=== PATIENT | female | born 1980 | race Caucasian/White ===

== ENCOUNTER 2019-04-20 12:15 | Emergency (ER) | payer SELFPAY ==
[~2019-04-20] VITALS: Ht 162.6 cm; Wt 90.7 kg
[~2019-04-20 12:15] MED LIST: ALBU90OI INH; AZIT250 PO; CLON2; CRUTCH4 USE; CYCL10 PO; FLUO20; HYDACE5; HYDACE5 PO; HYDPAM25 PO; IBUP800; IBUP800 PO; NAPR500 PO; NAPR550 PO; OXYACE5T PO; PRED20 PO; RXHYDACE PO; RXIBUP800 PO
== END 2019-04-20 14:21 | disposition left against medical advice (07) ==
LOC: ER 12:15
DX: Z53.21 Procedure and treatment not carried out due to patient leaving prior to being seen by health care provider (principal)

== ENCOUNTER → 2019-12-18 | Outpatient (CLI) | payer OTHER | END | disposition home or self-care (01) | LOC: LAB EV 11:00 → LAB SHORT 11:00 | DX: J20.9 Acute bronchitis, unspecified (principal); Z20.828 Contact with and (suspected) exposure to other viral communicable diseases | CPT/HCPCS: U0003 ==

== ENCOUNTER 2020-04-05 12:54 | Emergency (ER) | payer OTHER ==
[~2020-04-05] VITALS: Ht 162.6 cm; Wt 99.8 kg
[2020-04-05] MEDS ORDERED: CYCL10 PO (16:30)
[2020-04-05] MEDS ORDERED: LIDO700A20 TOP (16:30)
== END 2020-04-05 16:40 | disposition home or self-care (01) ==
LOC: ER 12:54
DX: M54.41 Lumbago with sciatica, right side (principal); F17.210 Nicotine dependence, cigarettes, uncomplicated; Z88.5 Allergy status to narcotic agent
CPT/HCPCS: 96372; 99284-25; A9270; J1885